=== PATIENT | male | born 1985 | race Two or more races ===

== ENCOUNTER 2023-08-31 17:53 | Emergency (ER) | payer MEDICAID ==
[2023-08-31] MEDS: METHOCARBAMOL 500 MG TAB PO ONE (20:00)
[2023-08-31] MEDS: HYDROcodone-ACET 5/325MG TAB PO ONE (20:00)
[2023-08-31] MEDS ORDERED: IBUP-1456 PO (22:22)
[2023-08-31] MEDS ORDERED: METH-1181 PO (22:22)
[2023-08-31] MEDS ORDERED: ACET-1304 PO (22:22)
[2023-08-31 23:23] VITALS: BP 131/89; PULSE 80; RESP 18; TEMP 98.5; O2SAT 98
[2023-08-31] MEDS: KETOROLAC TROMETH 30 MG/ML 1ML VIAL IV ONE (23:33)
== END 2023-08-31 23:34 | disposition home or self-care (01) ==
LOC: EDBD 17:53 → ER 17:53
DX: S16.1XXA Strain of muscle, fascia and tendon at neck level, initial encounter (principal); S93.492A Sprain of other ligament of left ankle, initial encounter; S46.812A Strain of other muscles, fascia and tendons at shoulder and upper arm level, left arm, initial encounter; S30.1XXA Contusion of abdominal wall, initial encounter; S90.32XA Contusion of left foot, initial encounter; S50.12XA Contusion of left forearm, initial encounter; V49.49XA Driver injured in collision with other motor vehicles in traffic accident, initial encounter; Y93.I9 Activity, other involving external motion; Y92.89 Other specified places as the place of occurrence of the external cause; Y99.8 Other external cause status
CPT/HCPCS: 71045; 73030; 73090; 73120; 73590; 73620; 74176

== ENCOUNTER 2023-09-06 11:33 | Emergency (ER) | payer MEDICAID ==
[~2023-09-06] VITALS: Ht 180.3 cm; Wt 110.9 kg
[~2023-09-06 11:33] MED LIST: ACET-1304 PO; IBUP-1456 PO; METH-1181 PO
[2023-09-06] MEDS: IOHEXOL 300 MG/ML 100ML BOTTLE IJ ONE (12:50)
[2023-09-06 13:36] LABS: Basophils # (auto) 0 10 ^3/uL (0-0.2); Basophils % (auto) 0.6 % (0.0-2.0); Eosinophils # (auto) 0.1 10 ^3/uL (0-0.8); Eosinophils % (auto) 2.2 % (0.0-7.0); Hematocrit 48.4 % (41.0-53.0); Hemoglobin 16.5 g/dL (13.5-17.5); Lymphocytes # (auto) 1.4 10 ^3/uL (0.4-5.4); Lymphocytes % (auto) 24.3 % (10.0-50.0); Mean Corpuscular Hemoglobin 31.6 pg (28.0-32.0); Mean Corpuscular Hgb Conc. 34.1 g/dL (32.0-36.0); Mean Corpuscular Volume 92.7 fL (80.0-100.0); Monocytes # (auto) 0.4 10 ^3/uL (0-1.3); Monocytes % (auto) 6.6 % (0.0-12.0); Neutrophils # (auto) 3.9 10 ^3/uL (1.6-8.6); Neutrophils % (auto) 66.3 % (37.0-80.0); Nucleated Red Blood Cells % 0.1 %; Red Blood Cells 5.22 10^6/uL (4.5-5.90); Red Cell Distribution Width 12.9 % (11.8-14.3); White Blood Cell 5.9 10^3/uL (4.4-10.8)
[2023-09-06 13:50] VITALS: BP 130/86; PULSE 69; RESP 16; TEMP 99.5; O2SAT 98
== END 2023-09-06 14:09 | disposition home or self-care (01) ==
LOC: ER 11:33
DX: S30.1XXD Contusion of abdominal wall, subsequent encounter (principal); X58.XXXD Exposure to other specified factors, subsequent encounter
CPT/HCPCS: 36415; 74177; 85025; 99285; Q9967